=== PATIENT | male | born 2005 | race Caucasian/White ===

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

== ENCOUNTER 2024-03-30 23:51 | Emergency (ER) | payer OTHER ==
--- OUTSIDE RECORDS SUMMARY | 2024-03-30 23:55 | XMS REPORT | Continuity of Care Document ---
Author Name Unknown Address [address] [place] [address] [facility] Address [address] [place] [address] Care Team Providers Care Retail Grocer Name Role Phone Sandy Forrest Primary Care Physician [phone] Doctor Unassigned, [place] Attending Clinician U Ame Correa MD Attending Clinician [phone] Selin Mejia NP Attending Clinician [phone] ANDREW MIRANDA Attending Clinician Unavailable Sandy Forrest Attending Clinician [phone] CORTEZ FORRESTH Attending Clinician Unavailable Nurse, [facility] Pob I Attending Clinician Unavail able Lab, [facility] Pob I Attending Clinician Unavailab Gage Hilton PA-C Attending Clinician [phone] GAGE DSOUZA Attending Clinician Unavailable Paige Alvarado RN Attending Clinician Netta Iniguezb1, [facility] Attending Clinician My Sims MD Attending Clinician Payers Payer Name Policy Type Policy Number Effective Date Expirati on Date Source [facility] [id number] 2020 00:00:00 Problems Condition Name Condition Details Condition Category Status Onset Date Resolution Date Last Treatment Date Treating Clinician Comments Source No known active problems No known active problems Disease [facility] Allergies, Adverse Reactions, Alerts Allergy Name Allergy Type Status Severity Reaction(s) Onset Date Inactive Date Treating Clinician Comments Source NO KNOWN ALLERGIE S Drug Class Active [facility] Social History Social Habit Start Date Stop Date Quantity Comments Source Exposure to SARS-CoV-2 (event) Not sure [facility] History SDOH Alcohol Std Drinks [facility] History SDOH Alcohol Binge [facility] Tobacco use and exposure 2021-06-07 00:00:00 2021-06-07 00:00:00 Never used [facility] Alcohol intake 2021-06-07 00:00:00 2021-06-07 00:00:00 Lifetime non-drinker (finding) [facility] History SDOH Alcohol Frequency 2021-06-07 00:00:00 2021-06-07 00:00:00 1 [facility] Sex Assigned At 2005 00:00:00 2005 00:00:00 [facility] Smoking Status Start Date Stop Date Source Never smoker [facility] Medications Ordered Medication Name Filled Medication Name Start Date Stop Date Current Medication? Ordering Clinician Indication Dosage Frequency Signature (SIG) Comments Components Source HYDROcodone -acetaminop hen (NORCO) 10-325 mg tablet 1 tablet 03-21 20:30: 00 03-21 19:27 :00 No 1{tbl} 1 tablet, Oral, ONCE, 1 dose, Tu 03/21/21 at 1530, Routine [facility] ibuprofen 600 mg tablet 03-21 00:00: 00 Yes [id number] 600mg Take 1 tablet by mouth every 6 (six) hours as needed for Pain (scale 1-3) or Pain (scale 4-6). [facility] amoxicillin -clavulanat e 875-125 mg per tablet 03-21 00:00: 00 04-01 04:59 :00 No [id number] 1{tbl} Take 1 tablet by mouth 2 (two) times daily for 10 days. [facility] Oxymetazoli ne HCl (AFRIN, OXYMETAZOLI NE,) 0.05 % Mist 03-21 00:00: 00 03-25 04:59 :00 No [id number] 2{squir t} Use 2 Squirts in each nostril 2 (two) times daily for 3 days. [facility] cetirizine 10 mg tablet 12-03 00:00: 00 Yes TAKE 1 TABLET BY MOUTH ONCE DAILY AT BEDTIME [facility] No known medications No [facility] Vital Signs Vital Name Observation Time Observation Value Comments S chang BMI 2021-06-07 19:21:00 25.80 kg/m2 [facility] Body height 2021-06-07 19:21:00 180.3 cm [facility] weight 2021-06-07 19:21:00 [facility] Systolic blood pressure 2021-03-21 20:00:00 128 mm[Hg] [facility] Diastolic blood pressure 2021-03-21 20:00:00 66 mm[Hg] [facility] Heart rate 2021-03-21 20:00:00 100 /min [facility] Body temperature 2021-03-21 20:00:00 36.67 Katerina [facility] Respiratory rate 2021-03-21 20:00:00 17 /min [facility] Oxygen saturation in Arterial blood by Pulse oximetry 2021-03-21 20:00:00 100 /min [facility] Body weight 2021-03-21 18:35:00 72.576 kg [facility] Systolic blood pressure 2021-03-21 20:00:00 128 mm[Hg] [facility] Diastolic blood pressure 2021-03-21 20:00:00 66 mm[Hg] [facility] Heart rate 2021-03-21 20:00:00 100 /min [facility] Body temperature 2021-03-21 20:00:00 36.67 Katerina [facility] Respiratory rate 2021-03-21 20:00:00 17 /min [facility] Oxygen saturation in Arterial blood by Pulse oximetry 2021-03-21 20:00:00 100 /min [facility] Body weight 2021-03-21 18:35:00 72.576 kg [facility] Systolic blood pressure 2020-02-12 18:30:00 109 mm[Hg] [facility] Diastolic blood pressure 2020-02-12 18:30:00 67 mm[Hg] [facility] Heart rate 2020-02-12 18:30:00 89 /min [facility] Body temperature 2020-02-12 18:30:00 36.83 Katerina [facility] Respiratory rate 2020-02-12 18:30:00 18 /min [facility] Body height 2020-02-12 18:30:00 175.3 cm [facility] Body weight 2020-02-12 18:30:00 72.576 kg [facility] BMI 2020-02-12 18:30:00 23.63 kg/m2 [facility] Oxygen saturation in Arterial blood by Pulse oximetry 2020-02-12 18:30:00 98 /min [facility] Systolic blood pressure 2020-02-12 18:30:00 109 mm[Hg] [facility] Diastolic blood pressure 2020-02-12 18:30:00 67 mm[Hg] [facility] Heart rate 2020-02-12 18:30:00 89 /min [facility] 2020-02-12 18:30:00 36.83 Katerina [facility] Respiratory rate 2020-02-12 18:30:00 18 /min [facility] Body height 2020-02-12 18:30:00 175.3 cm [facility] Body weight 2020-02-12 18:30:00 72.576 kg [facility] BMI 2020-02-12 18:30:00 23.63 kg/m2 [facility] Oxygen saturation in Arterial blood by Pulse oximetry 2020-02-12 18:30:00 98 /min [facility] Procedures Procedure Date / Time Performed Performing Clinician Source REFERRAL- REQUEST/RESPONSE 2022-11-28 06:01:00 Juan F santacruz Unassigned, [place] [facility] XR NASAL BONES 2021-03-21 19:49:43 Selin Mejia [facility] NOTICE OF PRIVACY PRACTICES 2021-03-21 18:29:57 Doctor Unassigned, [place] [facility] CONSENT/REFUSAL FOR DIAGNOSIS AND TREATMENT 2021-03-21 18:29:41 Doctor Unassigned, [place] [facility] NO SHOW OR MISSED APPOINTMENT POLICY ACKNOWLEDGEMENT 2020-11-02 17:54:49 Doctor Unassigned, [place] [facility] Encounters Start Date/Time End Date/Time Encounter Type Admission Type Attending [facility] Care Facility Care Department Encounter ID Source 2021-09-03 19:48:17 Emergency [facility] [id number] [facility] 2022-11-28 00:00:00 2022-11-28 00:00:00 Orders Only Doctor Unassigned, [place] [facility] 1.2.840.114 350.1.13.10 4.2.7.2.686 [id number] [facility] 2021-06-07 14:16:14 2021-06-07 15:21:46 Office Visit Ame Soto [address] 1.2.840.114 350.1.13.58 9.2.7.2.686 [id number] [facility] 2021-03-21 13:34:00 2021-03-21 15:29:00 [facility] 1.2.840.114 350.1.13.10 4.2.7.2.686 [id number] 2021-03-21 13:34:00 2021-03-21 15:29:00 [facility] 1.2.840.114 350.1.13.10 4.2.7.2.686 [id number] [facility] 2021-03-21 00:00:00 2021-03-21 00:00:00 Orders Only Doctor Unassigned, [place] [facility] 1.2.840.114 350.1.13.10 4.2.7.2.686 [id number] 2021-03-21 00:00:00 2021-03-21 00:00:00 Orders Only Doctor Unassigned, [place] [facility] 1.2.840.114 350.1.13.10 4.2.7.2.686 [id number] [facility] 2021-03-04 15:20:00 2021-03-04 15:20:00 Outpatient ANDREW MIRANDA [facility] [id number] [facility] 2021-02-11 15:05:00 2021-02-11 15:05:00 Outpatient [facility] [id number] [facility] 2020-11-02 11:55:49 2020-11-02 23:59:00 [facility] 1.2.840.114 350.1.13.10 4.2.7.2.686 [id number] 2020-11-02 11:55:49 2020-11-02 23:59:00 [facility] 1.2.840.114 350.1.13.10 4.2.7.2.686 [id number] [facility] 2020-11-02 11:55:22 2020-11-02 23:59:00 [facility] 1.2.840.114 350.1.13.10 4.2.7.2.686 [id number] 2020-11-02 11:55:22 2020-11-02 23:59:00 [facility] 1.2.840.114 350.1.13.10 4.2.7.2.686 [id number] [facility] 2020-11-02 12:15:00 2020-11-02 12:15:00 [id number] 2020-11-02 00:00:00 2020-11-02 00:00:00 Orders Only Doctor Unassigned, [place] [facility] 1.2.840.114 350.1.13.10 4.2.7.2.686 [id number] 2020-11-02 00:00:00 2020-11-02 00:00:00 Orders Only Doctor Unassigned, [place] [facility] 1.2840.114 350.1.13.10 4.2.7.2.686 [id number] [facility] 2020-09-22 00:00:00 2020-09-22 00:00:00 Telephone Nurse, [facility] 1.840.114 350.1.13.10 4.2.7.2.686 [id number] 2020-09-22 00:00:00 2020-09-22 00:00:00 Telephone Nurse, [facility] 1.2840.114 350.1.13.10 4.2.7.2.686 [id number] [facility] 2020-09-19 16:20:47 2020-09-19 16:40:47 Laboratory Only Lab, [facility] 1.2840.114 350.1.13.10 4.2.7.2.686 [id number] 2020-09-19 16:20:47 2020-09-19 16:40:47 Laboratory Only Lab, [facility] 1.2840.114 350.1.13.10 4.2.7.2.686 [id number] [facility] 2020-09-19 16:20:00 2020-09-19 16:20:00 Outpatient R [facility] [id number] [facility] 2020-02-13 00:00:00 2020-02-13 00:00:00 Telephone Paige Alvarado [facility] 1.2.840.114 350.1.13.10 4.2.7.2.686 [id number] 2020-02-13 00:00:00 2020-02-13 00:00:00 Telephone Paige Alvarado [facility] 1.2.840.114 350.1.13.10 4.2.7.2.686 [id number] [facility] 2020-02-12 13:21:23 2020-02-12 13:41:23 Urgent Care Pob1, Acute Care Clinic [facility] [address] [facility] 1.2.840.114 350.1.13.10 4.2.7.2.686 [id number] 2020-02-12 13:21:23 2020-02-12 13:41:23 Urgent Care Pob1, Acute Care Clinic [facility] 1.2.840.114 350.1.13.10 4.2.7.2.686 [id number] [facility] 2020-02-12 13:40:00 2020-02-12 13:40:00 Outpatient R [facility] [id number] [facility] Results Test Description Test Time Test Comments Results Resul t Comments Source XR NASAL BONES 2021-03-04 8 19:56:16 A minimally displaced nasal bone fracture is suspected. [...] Soft tissue swelling overlies the nose. [facility], Radiant Results Inft User - [...] this study and agree with theabove report. [facility]
--- NOTE | 2024-03-31 00:10 | EDPHYS ---
Physician Documentation [facility] Name: Jurgen Harrison Age: 18 yrs Sex: Male : 2005 Arrival Date: 03/30/2024 Time: 23:51 Bed IW3 Private MD: ED Physician Andrei Garland HPI: 03/31 00:18 This 18 yrs old Male presents to ER via Ambulatory with complaints of Puncture Wound To sb4 Foot. 00:18 stepped on something last night, punctured through his shoe and foot, unsure what it sb4 is. unsure if tetanus is up to date. no numbness/tingling, or retained foreign body. endorses pain. Historical: - Allergies: 00:05 No Known Allergies; jj7 - PMHx: 00:05 None; jj7 - PSHx: 00:05 None; jj7 - Immunization history:: Adult Immunizations up to date. - Infectious Disease History:: Denies. - Social history:: Smoking status: Patient denies any tobacco usage or history of. Patient/guardian denies using alcohol, street drugs, IV drugs. ROS: 00:18 MS/extremity: Positive for puncture, of the right foot, sb4 00:18 Constitutional: Negative for fever, chills, and weight loss, Exam: 00:18 Constitutional: This is a well developed, well nourished patient who is awake, alert, sb4 and in no acute distress. Head/Face: Normocephalic, atraumatic. Eyes: Extra-ocular motions intact. Periorbital areas with no swelling, redness, or edema. ENT: Mucous membranes moist. MS/ Extremity: Pulses equal, no cyanosis. Neurovascular intact. Full, normal range of motion. Neuro: Awake and alert, GCS 15, oriented to person, place, time, and situation. Motor strength 5/5 in all extremities. Sensory grossly intact. 00:18 Skin: injury, puncture(s), that are superficial, of the right foot, Vital Signs: 00:00 BP 115 / 75; Pulse 70; Resp 17; Temp 97; Pulse Ox 97% ; Weight 80.74 kg; Height 5 ft. jj7 11 in. ; Pain 5/10; 00:00 Body Mass Index 24.83 (80.74 kg, 180.34 cm) - Percentile 71.6 % jj7 00:00 Pain Scale: Adult jj7 MDM: 00:04 Patient medically screened. sb4 00:18 Data reviewed: vital signs, nurses notes, and as a result, I will discharge patient. sb4 Counseling: I had a detailed discussion with the patient and/or guardian regarding the historical points, exam findings, and any diagnostic results supporting the discharge/admit diagnosis, to return to the emergency department if symptoms worsen or persist or if there are any questions or concerns that arise at home. Administered Medications: 00:19 Drug: Boostrix Tdap IM 0.5 ml IM once; as a single dose Route: IM; Site: right deltoid; jj7 00:22 Follow up: Response: No adverse reaction jj7 Disposition Summary: 03/31/24 00:09 Discharge Ordered Notes: Location: Home sb4 Problem: new sb4 Symptoms: are unchanged sb4 Condition: Stable sb4 Diagnosis - puncture wound, without foreign body, of right foot sb4 Followup: sb4 - With: Private Physician - When: As needed - Reason: Recheck today's complaints, Re-evaluation by your physician Discharge Instructions: - Discharge Summary Sheet sb4 - Puncture Wound, [facility] sb4 Forms: - Patient Portal Instructions sb4 - Leadership Thank You Letter sb4 Addendum: 04/01/2024 02:29 I was immediately available for consultation during this patient's visit. I did not e c2 personally see the patient or discuss the patient with the [facility]. . Signatures: Mick Daniels RN RN jj7 Joanne John PA-C PA-C sb4 Andrei Garland MD MD ec2
--- NOTE | 2024-03-31 00:10 | ER ---
Nurse's Notes [facility] Name: Jurgen Harrison Age: 18 yrs Sex: Male : 2005 Arrival Date: 03/30/2024 Time: 23:51 Bed IW3 Private MD: Diagnosis: puncture wound, without foreign body, of right foot Presentation: 03/31 00:00 Chief complaint: Patient states: STEPPED ON A NAIL YESTERDAY 2AM. PUNCTURE WOUND TO jj7 RIGHT FOOT. Coronavirus screen: At this time, the client does not indicate any symptoms associated with coronavirus-19. Ebola Screen: No symptoms or risks identified at this time. Initial Sepsis Screen: Does the patient meet any 2 criteria? No. Patient's initial sepsis screen is negative. Does the patient have a suspected source of infection? No. Patient's initial sepsis screen is negative. Risk Assessment: Do you want to hurt yourself or someone else? Patient reports no desire to harm self or others. Onset of symptoms was March 31, 2024. 00:00 Method Of Arrival: Ambulatory j7 00:00 Acuity: ADE 5 jj7 Triage Assessment: 00:05 General: Appears in no apparent distress. comfortable, Behavior is calm, cooperative, jj7 appropriate for age. Pain: Complains of pain in right foot. Derm: Reports PUNCTURE WOUND TO BOTTOM OF RIGHT FOOT. Historical: - Allergies: 00:05 No Known Allergies; jj7 - PMHx: 00:05 None; jj7 - PSHx: 00:05 None; jj7 - Immunization history:: Adult Immunizations up to date. - Infectious Disease History:: Denies. - Social history:: Smoking status: Patient denies any tobacco usage or history of. Patient/guardian denies using alcohol, street drugs, IV drugs. Screenin:09 [facility] ED Fall Risk Assessment (Adult) History of falling in the last 3 months, jj7 including since admission No falls in past 3 months (0 pts) Confusion or Disorientation No (0 pts) Intoxicated or Sedated No (0 pts) Impaired Gait No (0 pts) Mobility Assist Device Used No (0 pt) Altered Elimination No (0 pt) Score/Fall Risk Level 0 - 2 = Low Risk Oriented to surroundings, Maintained a safe environment, Educated pt \T\ family on fall prevention, incl call for assistance when getting out of bed. Abuse screen: Denies threats or abuse. Nutritional screening: No deficits noted. Tuberculosis screening: No symptoms or risk factors identified. Assessment: 00:11 Reassessment: SEE TRIAGE ASSSSMENT. jj7 Vital Signs: 00:00 BP 115 / 75; Pulse 70; Resp 17; Temp 97; Pulse Ox 97% ; Weight 80.74 kg; Height 5 ft. jj7 11 in. ; Pain /10; 00:00 Body Mass Index 24.83 (80.74 kg, 180.34 cm) - Percentile 71.6 % jj7 00:00 Pain Scale: Adult jj7 ED Course: 03/30 23:55 Patient arrived in ED. jj6 23:59 [facility] sb4 23:59 Andrei Garland MD is Attending Physician. sb4 03/31 00:05 Triage completed. jj7 00:05 Arm band placed on. jj7 00:09 Patient has correct armband on for positive identification. Provided Education on: jj7 TETANUS VACCINE. 00:09 No provider procedures requiring assistance completed. Patient did not have IV access jj7 during this emergency room visit. Administered Medications: 00:19 Drug: Boostrix Tdap IM 0.5 ml IM once; as a single dose Route: IM; Site: right deltoid; jj7 00:22 Follow up: Response: No adverse reaction jj7 Medication: 00:09 VIS not applicable for this client. jj7 Outcome: 00:09 Discharge ordered by . sb4 00:22 Discharged to home ambulatory, with family, jj7 00:22 Condition: good 00:22 Discharge instructions given to patient, Instructed on discharge instructions, Demonstrated understanding of instructions, 00:22 Patient left the ED. jj7 Signatures: Cammy Lopes jj6 Mick Daniels RN RN jjJoanne Self PA-C PA-C sb4
[2024-03-31] MEDS ORDERED: TDAP (DIPHTH,PERTUSS(ACELL),TET VAC) 0.5 ML VIAL IMVAC ONE (00:17)
[2024-03-31 00:34] VITALS: BP 115/75; TEMP 97; O2SAT 97
== END 2024-03-31 00:22 | disposition home or self-care (01) ==
LOC: ER 23:51
DX: S91.331A Puncture wound without foreign body, right foot, initial encounter (principal)
CPT/HCPCS: 96372; 99284